=== PATIENT | male | born 1990 | race Two or more races ===

== ENCOUNTER 2022-06-03 01:31 | Emergency (ER) | payer OTHER ==
[~2022-06-03] VITALS: Ht 182.9 cm; Wt 101.2 kg
== END 2022-06-03 06:34 | disposition home or self-care (01) ==
LOC: ER 01:31 → EMR PED 01:59 → ER 01:59
DX: J11.1 Influenza due to unidentified influenza virus with other respiratory manifestations (principal); Z20.822 Contact with and (suspected) exposure to COVID-19